=== PATIENT | male | born 2000 | race Caucasian/White ===

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

== ENCOUNTER 2021-01-18 18:59 | Emergency (ER) | payer OTHER, SELFPAY ==
--- NOTE | ~2021-01-18 | XR_ITS ---
EXAMINATION: XR FACIAL BONES CLINICAL INFORMATION: Right orbital laceration. COMPARISON: None TECHNIQUE: 3 views of the facial bones were obtained. FINDINGS: There are no fractures or dislocations. No bone, joint or soft tissue abnormality is demonstrated. XR/XR facial bones <3V IMPRESSION: Unremarkable examination.
[2021-01-18 20:12] VITALS: BP 153/77; PULSE 90; RESP 18; TEMP 37; O2SAT 99; BMI 22.1
--- NOTE | 2021-01-18 21:17 | ED.WOUNDLAC ---
HPI - Wound/Laceration General Chief Complaint: Wound/Laceration Stated Complaint: eyelid lac Time Seen by Provider: 01/18/21 21:15 Source: patient Mode of arrival: ambulatory Limitations: no limitations History of Present Illness HPI narrative: 20-year-old male presents to the emergency department with bruising and laceration to the right eye. This injury was sustained when he slipped out of the shower and hit his face against the towel rack earlier this morning. Patient does not report losing consciousness, denies dizziness, lightheadedness, nausea, vomiting, diarrhea, constipation, chest pain or pressure, palpitations, extremity pain, or any other concerning symptoms. Onset (ago): hour(s) (Several hours prior to arrival) Location: face Place: home Patient tetanus UTD: No Context: accidental Associated symptoms: pain Treatments prior to arrival: cold therapy Related Data Allergies Allergy/AdvReac Type Severity Reaction Status Date / Time From Benadryl Allergy Unknown RASH Uncoded 01/18/21 20:12 Review of Systems Review of Systems: Constitutional: No Fever, No Chills ENT/Mouth: No Ear Pain, No Hoarseness, No sore throat Eyes: No Eye Pain, No Swelling, No Redness, No Foreign Body Cardiovascular: No Chest Pain, No SOB Respiratory: No Cough, No Dyspnea Gastrointestinal: No Nausea, No Vomiting, No Diarrhea, No abdominal Pain Genitourinary: No Dysuria, No Hematuria Musculoskeletal: positive eyebrow pain, No Myalgias, No Joint Swelling Skin: No Skin lacerations, No rash Neuro: No Weakness, No Numbness, No Paresthesias, No Loss of Consciousness, No Dizziness, No Headache Psych: No Anxiety/Panic, No Depression Heme/Lymph: no easy bruising, no Lymphadenopathy Endocrine: No Polyuria, No Polydipsia Yes all other systems are reviewed and are negative PMFSH Past Medical History Attestation statement: The following information was validated with the patient. Source: old records reviewed Medical History Patient denies medical problems Social History Social History Advance Directives: No Physical Exam Vital Signs: Vital Signs: Last Vital Signs Temp 98.6 F 01/18/21 20:12 Pulse 90 01/18/21 20:12 Resp 18 01/18/21 20:12 BP 153/77 H 01/18/21 20:12 Pulse Ox 99 01/18/21 20:12 Body Mass Index 22.1 Appearance: Alert. Oriented X3. No acute distress. Head: Normal external exam. Normocephalic. Atraumatic. No Crawford signs noted. Right-sided lateral eye ecchymoses Eyes: PERRLA. EOMI. Conjunctiva and sclera normal. Bruising to the right eyelid ENT: TM's Normal. Pharynx normal. Uvula midline. Moist mucous membranes. No trismus noted. No drooling noted. No muffled voice noted. Neck: Normal inspection. Neck supple. No adenopathy. Thyroid Normal. No meningeal signs. No neck mass noted. CVS: Normal heart rate and rhythm. Heart sound normal. No murmurs noted. Pulses equal to all extremities. Respiratory: No respiratory distress. Painless inspiration. Breath sounds normal. No wheezes/rales/rhonchi noted. Chest nontender. No accessory muscle usage noted or decreased air movement noted. Abdomen: Soft and nontender. Bowel sounds normal in all 4 quadrants. No distention noted. No organomegaly noted. No visible injury noted. Back: No CVA tenderness. Full range of motion noted. Skin: Superficial laceration measuring about 2 cm in length just below the right eyebrow Skin warm and dry. Normal skin color. Normal skin turgor. No rashes/lesions/lacerations noted. Extremities: No lower extremity edema. Extremities exhibit normal range of motion. Extremities nontender. Neuro: cranial nerves 2-12 intact, no focal neural deficits, strength 5/5 to all extremities, No motor deficit. No sensory deficit. Course Course Course Narrative: 20-year-old male presents with facial trauma after slipping and falling out of the shower and hitting his face on a towel rack. No indication of foul play or abuse. Will order facial bone x-rays. Update Tdap vaccine at this time. Facial bones x-rays negative for fractures or acute findings. Laceration is superficial, will apply Dermabond and Steri-Strips. Cleansed with Betadine and normal saline. Patient tolerated procedure well. Patient verbalized understanding of and agrees plan of care discharge home. MDM - Wound/Laceration MDM Narrative Medical decision making narrative: Fall Differential Diagnosis Differential diagnosis: Likely laceration and abrasion Medical Records Attestation: I reviewed the patient's medical records. Imaging Data Facial bones x-ray: Attestation: I personally reviewed and interpreted this imaging study as follows: Radiologist's impression: EXAMINATION: XR FACIAL BONES CLINICAL INFORMATION: Right orbital laceration. COMPARISON: None TECHNIQUE: 3 views of the facial bones were obtained. FINDINGS: There are no fractures or dislocations. No bone, joint or soft tissue abnormality is demonstrated. XR/XR facial bones <3V IMPRESSION: Unremarkable examination. ? Discharge Plan Discharge Clinical Impression: Laceration, Concussion, Fall Patient Disposition: Home, Self-Care Instructions: Concussion (ED), Post Concussion Syndrome (ED), Skin Adhesive Care (ED), Facial Laceration (ED) Additional Instructions: You were evaluated for injury sustained from a fall. Your facial bone x-rays are negative for acute findings requiring emergent intervention. The laceration above your right eye was glued and Steri stripped. Please keep the Steri-Strips in place. They will fall off on their own. Please follow-up post concussive and concussive protocol. You must follow-up with primary care provider for further follow-up for concussion. Thank you for choosing this emergency department for evaluation. Please follow-up with primary care physician as needed. Return to the emergency department for any new, concerning, or worsening symptoms. Interventions: ED Discharge Assessment Last Done: 01/18/21 22:38 Discharge Date/Time: 01/18/21 22:39
[2021-01-18] MEDS: Lidocaine HCl 2 % MPF 5 ML VIAL SUBCUT (21:58)
[2021-01-18] MEDS: Diphth,Pertus(ACell),Tet Adult 0.5 ML SYRINGE IM (21:59)
== END 2021-01-18 22:39 | disposition home or self-care (01) ==
PROVIDERS: Emergency Provider Internal Medicine
DX: S06.0X0A Concussion without loss of consciousness, initial encounter (principal); S01.111A Laceration without foreign body of right eyelid and periocular area, initial encounter; W18.2XXA Fall in (into) shower or empty bathtub, initial encounter; Y93.E1 Activity, personal bathing and showering; Y92.012 Bathroom of single-family (private) house as the place of occurrence of the external cause; Y99.9 Unspecified external cause status
CPT/HCPCS: 12011; 70140; 90471; 90715; 99284

== ENCOUNTER 2021-06-25 13:20 | Outpatient (REF) | payer OTHER, SELFPAY ==
[2021-06-25 15:01] LABS: Binax Internal Control QC Valid; Binax Now Covid-19 Ag Negative (Negative)
== END 2021-06-25 13:21 | disposition home or self-care (01) ==
LOC: HO.LAB 13:20
PROVIDERS: Visit Provider Internal Medicine
DX: Z20.822 Contact with and (suspected) exposure to COVID-19 (principal)
CPT/HCPCS: 36415; C9803